=== PATIENT | female | born 1945 | race Caucasian/White ===

== ENCOUNTER → 2022-03-17 15:55 | Outpatient (BNVA) | payer MEDICARE, OTHER, SELFPAY | PROVIDERS: PCP Internal Medicine; Visit Provider Psychiatry & Neurology Psychiatry | DX: F41.1 Generalized anxiety disorder (principal); F34.1 Dysthymic disorder | CPT/HCPCS: 99212 ==

== ENCOUNTER → 2022-07-04 15:06 | Outpatient (BNVA) | payer MEDICARE, OTHER, SELFPAY | PROVIDERS: PCP Internal Medicine; Visit Provider Psychiatry & Neurology Psychiatry | DX: F41.1 Generalized anxiety disorder (principal) | CPT/HCPCS: 99212 ==

== ENCOUNTER 2022-12-02 12:24 | Outpatient (AMB) | payer MEDICARE, OTHER, SELFPAY ==
--- NOTE | 2022-12-02 12:45 | MHC.OFFVISPS ---
Intake Intake Visit Reasons: depression Allergies cefadroxil [From DURICEF] Allergy (Intermediate, Unverified 02/06/20 16:02) RASH cosmetic [COSMETIC] Allergy (Intermediate, Unverified 02/06/20 16:02) RASH ammonium peroxydisulfate [AMMONIUM PEROXYDISULFATE] Allergy (Mild, Unverified 02/06/20 16:02) RASH bacitracin [BACITRACIN] Allergy (Mild, Unverified 02/06/20 16:02) RASH lanolin [LANOLIN] Allergy (Mild, Unverified 02/06/20 16:02) RASH Latex, Natural Rubber [LATEX, NATURAL RUBBER] Allergy (Mild, Unverified 02/06/20 16:02) RASH perfume [PERFUME] Allergy (Mild, Unverified 02/06/20 16:02) HEADACHES METAL Adverse Reaction (Mild, Uncoded 02/06/20 16:02) RASH Medication List - Last Reconciled 12/11/22 by Randy Álvarez MD amitriptyline 5 - 20 mg (0.5 - 2 x 10 mg) PO BEDTIME fluoxetine 20 mg PO DAILY olmesartan (Benicar) 20 mg PO DAILY simvastatin 20 mg PO BEDTIME valacyclovir 500 - 1,000 mg PO DAILY HPI- Psychiatric Chief Complaint: depression HPI Narrative: The patient has generally been doing well. She continues to be active and engaged. Patient's mood has been stable some chronic degree of anxiety but generally manageable. 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 She is limited physically by arthritis noted new medical problems stable on a combination of fluoxetine and amitriptyline. 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 Past Psychiatric History: psych hosp 1 x [facility] 2013 history of chronic low-level depression and anxiety has been doing better over the past few years Mental Status Exam Mental Status Exam Narrative: Mental Status Exam Narrative: Appearance: Casually dressed Behavior: Cooperative appropriate psychomotor: Within normal limits Speech: Normal volume and prosody Thought proccess logical and goal-directed Thought content: Future oriented eager to to discuss her activities stays socially engaged Mood: Euthymic Affect: Appropriate to mood full affect SI:denies HI:denies VH/AH:none Delusions: None Insight/judgment: Good insight and judgment Memory/cog: Intact Assessment and Plan Counseling and coordination of Care Pt. Self Management counseling: Breathing and Maintenance-social rhythm Medication management counseling: Effectiveness Diagnosis and Prognosis Counseling: Adequacy of current interventions Details-Diagnosis/Prognosis counseling: Patient generally stable continue fluoxetine amitriptyline Details: I spent [28] minutes reviewing the record, seeing the patient and documenting in the medical record. Counseling provided to the patient/caregiver as outlined below. Addressed patient/caregiver concerns regarding current medication regime including effective adherence. Addressed patient/caregiver concerns regarding diagnosis and prognosis including accuracy of diagnosis, prognosis over time, impact of diagnosis. Addressed patient/caregiver concerns regarding impact of recent stressors. 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
--- NOTE | 2022-12-02 13:52 | MHC.OFFVISPS ---
Intake Intake Visit Reasons: depression Allergies cefadroxil [From DURICEF] Allergy (Intermediate, Unverified 02/06/20 16:02) RASH cosmetic [COSMETIC] Allergy (Intermediate, Unverified 02/06/20 16:02) RASH ammonium peroxydisulfate [AMMONIUM PEROXYDISULFATE] Allergy (Mild, Unverified 02/06/20 16:02) RASH bacitracin [BACITRACIN] Allergy (Mild, Unverified 02/06/20 16:02) RASH lanolin [LANOLIN] Allergy (Mild, Unverified 02/06/20 16:02) RASH Latex, Natural Rubber [LATEX, NATURAL RUBBER] Allergy (Mild, Unverified 02/06/20 16:02) RASH perfume [PERFUME] Allergy (Mild, Unverified 02/06/20 16:02) HEADACHES METAL Adverse Reaction (Mild, Uncoded 02/06/20 16:02) RASH Medication List - Last Reconciled 12/02/22 by Randy Álvarez MD amitriptyline 5 - 20 mg (0.5 - 2 x 10 mg) PO BEDTIME fluoxetine 20 mg PO DAILY olmesartan (Benicar) 20 mg PO DAILY simvastatin 20 mg PO BEDTIME valacyclovir 500 - 1,000 mg PO DAILY HPI- Psychiatric Chief Complaint: depression HPI Past Psychiatric History: psych hosp 1 x [facility] 2013 history of chronic low-level depression and anxiety has been doing better over the past few years Assessment and Plan Counseling and coordination of Care Details: I spent [] minutes reviewing the record, seeing the patient and documenting in the medical record. Counseling provided to the patient/caregiver as outlined below. Addressed patient/caregiver concerns regarding current medication regime including effective adherence. Addressed patient/caregiver concerns regarding diagnosis and prognosis including accuracy of diagnosis, prognosis over time, impact of diagnosis. Addressed patient/caregiver concerns regarding impact of recent stressors. 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
== END 2022-12-02 13:28 | disposition home or self-care (01) ==
LOC: HO.HOP 12:24
PROVIDERS: PCP Internal Medicine; Visit Provider Psychiatry & Neurology Psychiatry
DX: F33.0 Major depressive disorder, recurrent, mild (principal)
CPT/HCPCS: 99213

== ENCOUNTER → 2022-12-02 12:24 | Outpatient (BNVA) | payer MEDICARE, OTHER, SELFPAY | PROVIDERS: PCP Internal Medicine; Visit Provider Psychiatry & Neurology Psychiatry | DX: F32.A Depression, unspecified (principal) | CPT/HCPCS: 99212 ==

== ENCOUNTER 2023-03-29 13:33 | Outpatient (AMB) | payer MEDICARE, OTHER, SELFPAY ==
--- NOTE | 2023-03-29 13:58 | A.OFFPSYCH_ITS ---
Intake Intake Visit Reasons: depression Allergies cefadroxil [From DURICEF] Allergy (Intermediate, Unverified 02/06/20 16:02) RASH cosmetic [COSMETIC] Allergy (Intermediate, Unverified 02/06/20 16:02) RASH ammonium peroxydisulfate [AMMONIUM PEROXYDISULFATE] Allergy (Mild, Unverified 02/06/20 16:02) RASH bacitracin [BACITRACIN] Allergy (Mild, Unverified 02/06/20 16:02) RASH lanolin [LANOLIN] Allergy (Mild, Unverified 02/06/20 16:02) RASH Latex, Natural Rubber [LATEX, NATURAL RUBBER] Allergy (Mild, Unverified 02/06/20 16:02) RASH perfume [PERFUME] Allergy (Mild, Unverified 02/06/20 16:02) HEADACHES METAL Adverse Reaction (Mild, Uncoded 02/06/20 16:02) RASH Medication List - Last Reconciled 03/29/23 by Randy Álvarez MD amitriptyline 5 - 20 mg (0.5 - 2 x 10 mg) PO BEDTIME fluoxetine 20 mg PO DAILY olmesartan (Benicar) 20 mg PO DAILY simvastatin 20 mg PO BEDTIME valacyclovir 500 - 1,000 mg PO DAILY HPI- Psychiatric Chief Complaint: depression HPI Narrative: pt generally stable periods of anxiety processing past issues related to her hx past marriage still socializes has good friends has essentially adopted a family occ panic attack Past Psychiatric History: psych hosp 1 x [facility] 2013 history of chronic low- level depression and anxiety has been doing better over the past few years Mental Status Exam Mental Status Exam Narrative: Mental Status Exam Narrative: Appearance: Casually dressed Behavior: Cooperative appropriate psychomotor: Within normal limits Speech: somewhat pressured Thought proccess logical and goal-directed some circumstantiality Thought content: issues related to anxiety provoking issues Mood: anxious Affect: Appropriate to mood full affect SI:denies HI:denies VH/AH:none Delusions: None Insight/judgment: Good insight and judgment Memory/cog: Intact Assessment and Plan Assessment & Plan (1) Generalized anxiety disorder: Status: Acute Code(s): F41.1 - Generalized anxiety disorder (2) Dysthymia (or depressive neurosis): Status: Acute Code(s): F34.1 - Dysthymic disorder (3) Essential (primary) hypertension: Status: Acute Code(s): I10 - Essential (primary) hypertension Plan pt generally doing well chronically anxious but manageable Medications: Refilled amitriptyline 5 - 20 mg (0.5 - 2 x 10 mg) PO BEDTIME 180 tabs 0RF fluoxetine 20 mg PO DAILY 90 caps 0RF Counseling and coordination of Care Pt. Self Management counseling: Breathing and Cognitive restructuring Diagnosis and Prognosis Counseling: Impact of diagnosis on life functions and Adequacy of current interventions Details: I spent [38] minutes reviewing the record, seeing the patient and documenting in the medical record. Counseling provided to the patient/caregiver as outlined below. Addressed patient/caregiver concerns regarding current medication regime including effective adherence. Addressed patient/caregiver concerns regarding diagnosis and prognosis including accuracy of diagnosis, prognosis over time, impact of diagnosis. Addressed patient/caregiver concerns regarding impact of recent stressors. 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
== END 2023-03-29 17:19 | disposition home or self-care (01) ==
LOC: HO.HOP 13:33
PROVIDERS: PCP Internal Medicine; Visit Provider Psychiatry & Neurology Psychiatry
DX: F41.1 Generalized anxiety disorder (principal); F34.1 Dysthymic disorder; I10 Essential (primary) hypertension
CPT/HCPCS: 90833; 99213

== ENCOUNTER → 2023-03-29 13:33 | Outpatient (BNVA) | payer MEDICARE, OTHER, SELFPAY | PROVIDERS: PCP Internal Medicine; Visit Provider Psychiatry & Neurology Psychiatry | DX: F41.1 Generalized anxiety disorder (principal); F34.1 Dysthymic disorder; I10 Essential (primary) hypertension | CPT/HCPCS: 99212 ==

== ENCOUNTER 2023-07-26 13:35 | Outpatient (AMB) | payer MEDICARE, OTHER, SELFPAY ==
--- NOTE | 2023-07-26 13:45 | A.OFFPSYCH_ITS ---
Intake Intake Visit Reasons: depression Allergies cefadroxil [From DURICEF] Allergy (Intermediate, Unverified 02/06/20 16:02) RASH cosmetic [COSMETIC] Allergy (Intermediate, Unverified 02/06/20 16:02) RASH ammonium peroxydisulfate [AMMONIUM PEROXYDISULFATE] Allergy (Mild, Unverified 02/06/20 16:02) RASH bacitracin [BACITRACIN] Allergy (Mild, Unverified 02/06/20 16:02) RASH lanolin [LANOLIN] Allergy (Mild, Unverified 02/06/20 16:02) RASH Latex, Natural Rubber [LATEX, NATURAL RUBBER] Allergy (Mild, Unverified 02/06/20 16:02) RASH perfume [PERFUME] Allergy (Mild, Unverified 02/06/20 16:02) HEADACHES METAL Adverse Reaction (Mild, Uncoded 02/06/20 16:02) RASH Medication List - Last Reconciled 07/26/23 by Randy Álvarez MD amitriptyline 5 - 20 mg (0.5 - 2 x 10 mg) PO BEDTIME fluoxetine 20 mg PO DAILY olmesartan (Benicar) 20 mg PO DAILY simvastatin 20 mg PO BEDTIME valacyclovir 500 - 1,000 mg PO DAILY HPI- Psychiatric Chief Complaint: depression HPI Narrative: Pt seen in f/u mood generally ok very active with friends cont on prozac with good effect for mood amitriptline has been doing chair yoga her walking is somewhat limited probably needs orthopedic surgery generally doing well has good socialization and contact with friends. Feels amitriptyline helpful periods of mild anxiety mild depression at times often interpersonally related but generally this point no major life impact Past Psychiatric History: psych hosp 1 x [facility] 2013 history of chronic low- level depression and anxiety has been doing better over the past few years Mental Status Exam Mental Status Exam Narrative: Mental Status Exam Narrative: Appearance: Casually dressed Behavior: Cooperative appropriate psychomotor: Within normal limits Speech: somewhat pressured Thought proccess logical and goal-directed Thought content: Generally content with current life situation Mood: Minimal anxiety Affect: Appropriate to mood full affect SI:denies HI:denies VH/AH:none Delusions: None Insight/judgment: Good insight and judgment Memory/cog: Intact Assessment and Plan Assessment & Plan (1) Generalized anxiety disorder: Status: Acute Code(s): F41.1 - Generalized anxiety disorder (2) Dysthymia (or depressive neurosis): Status: Acute Code(s): F34.1 - Dysthymic disorder Plan discussion re knee replacement vs inj issues related to health and well-being. Generally feels stable on fluoxetine and amitriptyline discussed use of rare low-dose lorazepam for panic symptoms Dysthymia mostly in remission Medications: New lorazepam 0.5 mg PO BID PRN 10 tabs 1RF anxiety Refilled fluoxetine 20 mg PO DAILY 90 caps 0RF amitriptyline 5 - 20 mg (0.5 - 2 x 10 mg) PO BEDTIME 180 tabs 0RF Counseling and coordination of Care Details-Self Mgmt counseling: Issues related to social interaction managing anxiety Diagnosis and Prognosis Counseling: Adequacy of current interventions Details: I spent [30] minutes reviewing the record, seeing the patient and documenting in the medical record. Counseling provided to the patient/caregiver as outlined below. Addressed patient/caregiver concerns regarding current medication regime including effective adherence. Addressed patient/caregiver concerns regarding diagnosis and prognosis including accuracy of diagnosis, prognosis over time, impact of diagnosis. Addressed patient/caregiver concerns regarding impact of recent stressors. [facility] Medical History (Updated 03/17/22 @ 16:36 by Randy Álvarez MD) Generalized anxiety disorder Dysthymia (or depressive neurosis) Hypercholesteremia Essential (primary) hypertension Social History: retired sw 1 s 1 b 1 b depression mother depression Substance History: none Trauma History: none Coding Level of Care Code Est Pt Level 4 (89423) Diagnoses Generalized anxiety disorder F41.1 Dysthymia (or depressive neurosis) F34.1
== END 2023-07-26 14:11 | disposition home or self-care (01) ==
LOC: HO.HOP 13:35
PROVIDERS: PCP Internal Medicine; Visit Provider Psychiatry & Neurology Psychiatry
DX: F41.1 Generalized anxiety disorder (principal); F34.1 Dysthymic disorder
CPT/HCPCS: 99214

== ENCOUNTER → 2023-07-26 13:35 | Outpatient (BNVA) | payer MEDICARE, OTHER, SELFPAY | PROVIDERS: PCP Internal Medicine; Visit Provider Psychiatry & Neurology Psychiatry | DX: F41.1 Generalized anxiety disorder (principal); F34.1 Dysthymic disorder | CPT/HCPCS: 99212 ==

== ENCOUNTER 2023-12-21 13:56 | Outpatient (AMB) | payer MEDICARE, OTHER, SELFPAY ==
--- NOTE | 2023-12-21 14:11 | MHC.OFFVISPS ---
Intake Intake Visit Reasons: depression Allergies cefadroxil [From DURICEF] Allergy (Intermediate, Unverified 02/06/20 16:02) RASH cosmetic [COSMETIC] Allergy (Intermediate, Unverified 02/06/20 16:02) RASH ammonium peroxydisulfate [AMMONIUM PEROXYDISULFATE] Allergy (Mild, Unverified 02/06/20 16:02) RASH bacitracin [BACITRACIN] Allergy (Mild, Unverified 02/06/20 16:02) RASH lanolin [LANOLIN] Allergy (Mild, Unverified 02/06/20 16:02) RASH Latex, Natural Rubber [LATEX, NATURAL RUBBER] Allergy (Mild, Unverified 02/06/20 16:02) RASH perfume [PERFUME] Allergy (Mild, Unverified 02/06/20 16:02) HEADACHES METAL Adverse Reaction (Mild, Uncoded 02/06/20 16:02) RASH Medication List - Last Reconciled 12/21/23 by Randy Álvarez MD amitriptyline 5 - 20 mg (0.5 - 2 x 10 mg) PO BEDTIME fluoxetine 20 mg PO DAILY lorazepam 0.5 mg PO BID PRN olmesartan (Benicar) 20 mg PO DAILY simvastatin 20 mg PO BEDTIME valacyclovir 500 - 1,000 mg PO DAILY HPI- Psychiatric Chief Complaint: depression HPI Narrative: Patient seen psychiatric follow-up. Patient has been dealing with some stressors her sister with MS is now in a long-term and has been having cognitive deterioration she has feelings about the placement happened. Patient does have multiple connections and has friends that are support for her. Patient's mood generally stable some periods reactivity and anxiety but feels generally stable on fluoxetine and amitriptyline at bedtime. The patient generally feels well has had some ambulation difficulty. Patient is seen in ongoing psychotherapy which she finds quite helpful Past Psychiatric History: psych hosp 1 x [facility] 2013 history of chronic low-level depression and anxiety has been doing better over the past few years Mental Status Exam Mental Status Exam Narrative: Mental Status Exam Narrative: Appearance: Casually dressed Behavior: Cooperative appropriate psychomotor: Within normal limits Speech: somewhat pressured Thought proccess logical and goal-directed Thought content: Generally content with current life situation Mood: Mild anxiety Affect: Appropriate to mood full affect SI:denies HI:denies VH/AH:none Delusions: None Insight/judgment: Good insight and judgment patient is able to enjoy things generally tries to keep things in balance and perspective Memory/cog: Intact Assessment and Plan Assessment & Plan (1) Generalized anxiety disorder: Status: Acute Code(s): F41.1 - Generalized anxiety disorder Plan Pt has generally been doing well no new medical concerns sister in in snf has MS brother is impaired generally does well on fluoxetine 20 mg most anxiety and depressive symptoms in check very rare use of lorazepam 0.5 mg given 10 pills amitriptyline has been very helpful at bedtime no noted side effects no evidence of overuse or adverse effect patient generally stable dysthymia in remission Medications: Refilled lorazepam 0.5 mg PO BID PRN 10 tabs 1RF anxiety amitriptyline 5 - 20 mg (0.5 - 2 x 10 mg) PO BEDTIME 180 tabs 1RF fluoxetine 20 mg PO DAILY 90 caps 1RF Counseling and coordination of Care Medication management counseling: Effectiveness and Side effects Diagnosis and Prognosis Counseling: Adequacy of current interventions Details: I spent [30] minutes reviewing the record, seeing the patient and documenting in the medical record. Counseling provided to the patient/caregiver as outlined below. Addressed patient/caregiver concerns regarding current medication regime including effective adherence. Addressed patient/caregiver concerns regarding diagnosis and prognosis including accuracy of diagnosis, prognosis over time, impact of diagnosis. Addressed patient/caregiver concerns regarding impact of recent stressors. 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
== END 2023-12-21 17:50 | disposition home or self-care (01) ==
LOC: HO.HOP 13:56
PROVIDERS: PCP Internal Medicine; Visit Provider Psychiatry & Neurology Psychiatry
DX: F41.1 Generalized anxiety disorder (principal)
CPT/HCPCS: 99214

== ENCOUNTER → 2023-12-21 13:56 | Outpatient (BNVA) | payer MEDICARE, OTHER, SELFPAY | PROVIDERS: PCP Internal Medicine; Visit Provider Psychiatry & Neurology Psychiatry | DX: F41.1 Generalized anxiety disorder (principal); F32.A Depression, unspecified | CPT/HCPCS: 99212 ==